=== PATIENT | female | born 1955 | race Two or more races ===

== ENCOUNTER 2021-08-29 08:06 | Outpatient (CLI) | payer OTHER | END 2021-08-29 08:07 | disposition home or self-care (01) | LOC: LAB 08:06 | PROVIDERS: ATTEND General Practice | DX: E78.9 Disorder of lipoprotein metabolism, unspecified (principal); R73.01 Impaired fasting glucose; R80.9 Proteinuria, unspecified; Z12.11 Encounter for screening for malignant neoplasm of colon; E03.9 Hypothyroidism, unspecified; E55.9 Vitamin D deficiency, unspecified ==

== ENCOUNTER 2021-08-29 08:49 | Outpatient (CLI) | payer OTHER | END 2021-08-29 08:54 | disposition home or self-care (01) | LOC: RAD 08:49 | PROVIDERS: ATTEND General Practice | DX: J18.9 Pneumonia, unspecified organism (principal) ==

== ENCOUNTER 2021-08-30 10:29 | Outpatient (CLI) | payer OTHER | END 2021-08-30 10:30 | disposition home or self-care (01) | LOC: NUCLEAR 10:29 | PROVIDERS: ATTEND General Practice | DX: M81.0 Age-related osteoporosis without current pathological fracture (principal) ==

== ENCOUNTER 2021-08-30 11:10 | Outpatient (CLI) | payer OTHER | END 2021-08-30 15:21 | disposition home or self-care (01) | LOC: LAB 11:10 | DX: E78.9 Disorder of lipoprotein metabolism, unspecified (principal); R73.01 Impaired fasting glucose; R80.9 Proteinuria, unspecified; E03.9 Hypothyroidism, unspecified; E55.9 Vitamin D deficiency, unspecified; Z12.11 Encounter for screening for malignant neoplasm of colon ==

== ENCOUNTER 2021-08-30 11:33 | Outpatient (CLI) | payer OTHER | END 2021-08-30 11:40 | disposition home or self-care (01) | LOC: MAMO-SONO 11:33 | PROVIDERS: ATTEND General Practice | DX: Z12.31 Encounter for screening mammogram for malignant neoplasm of breast (principal); N63.0 Unspecified lump in unspecified breast; N64.4 Mastodynia ==